=== PATIENT | male | born 1950 | race Caucasian/White ===

== ENCOUNTER 2017-12-11 19:46 | Emergency (ER) | payer OTHER ==
[~2017-12-11] VITALS: Ht 172.7 cm; Wt 74.8 kg
[~2017-12-11 19:46] MED LIST: ASPI-495 PO; LOSA50TA21 PO
[2017-12-11 19:51] VITALS: BP 195/108
[2017-12-11] MEDS ORDERED: ONDANSETRON HCL/PF - ER 4 MG/2 ML VIAL IV ONE (20:00)
--- NOTE | 2017-12-11 20:01 | NUR ---
CALLED DR LAM, NO ANSWER; I LEFT A VOICEMAIL WITH CALL BACK #
[2017-12-11] MEDS ORDERED: ONDANSETRON HCL/PF 4 MG/2 ML VIAL ONE (20:05)
--- NOTE | 2017-12-11 20:25 | NUR ---
CALLED [facility], WAITING FOR DARIEL HUMPHREYS TO CALL BACK
--- NOTE | 2017-12-11 20:43 | NUR ---
Patient does not wish to proceed with medical care recommended by Dr. Cho. Patient given information related to possible complications, up to and including , which could occur as a result of leaving the hospital at this time. Patient verbalizes understanding of risks involved due to leaving against medical advice. Patient has signed AMA form.
== END 2017-12-11 20:45 | disposition home or self-care (01) ==
LOC: ER 19:46
DX: T18.198A Other foreign object in esophagus causing other injury, initial encounter (principal); I10 Essential (primary) hypertension; Z79.82 Long term (current) use of aspirin; Z60.2 Problems related to living alone; Z98.890 Other specified postprocedural states; Z53.20 Procedure and treatment not carried out because of patient's decision for unspecified reasons; X58.XXXA Exposure to other specified factors, initial encounter; Y93.89 Activity, other specified; Y92.89 Other specified places as the place of occurrence of the external cause; Y99.8 Other external cause status
CPT/HCPCS: A4606; J2405; Z7610